=== PATIENT | male | born 1940 | race Two or more races ===

== ENCOUNTER 2021-03-08 10:25 | Inpatient (IN) | payer OTHER ==
[~2021-03-08] VITALS: Ht 167.6 cm; Wt 72.6 kg
[~2021-03-08 10:25] MED LIST: COZAAR50 MG PO; METFORMIN HCL500 MG PO; ZOCOR40 MG PO
[2021-03-08] MEDS ORDERED: LEVOTHYROXINE25 MCG PO (10:36)
--- NOTE | 2021-03-08 10:58 | NUR ---
PACIENTE MASCULINO, ALERTA Y ORIENTADO. REFIERE REGINA SINTIO DOLOR EN EL BRAZO CHEMO Y HOY LLEGA POR ADORMECIMIENTO EN EL MISMO. SE MIDE S/V. BP:180/85. SE REALIZA EKG, SE CONSULTA EL MISMO CON DRA. REINOSO. SE UBICA PTE EN NEHA, AREA DE OBSERVACION.
--- NOTE | 2021-03-08 11:08 | NUR ---
PTE ALERTA,ESTBLE Y ORIENTADO.SE EDUCA SOBRE EL TRATAMIENTO QUE S VIN REALIZARA EN EL HOSPITAL Y NEREYDA REFIERE ENTENDER.SE EL MICHI MUESTRAS DE JEANETTE MALCOLM ORDEN MEDICA.
--- NOTE | 2021-03-08 15:09 | NUR ---
SE RECIBE PTE EN NEHA CON BARANDAS ELEVADAS EN POSICION SEMI-MORENO. PTE CON BUEN PATRON RESPIRATORIO. ALERTA, ORIENTADO EN SHIKHA NADINE ESFERAS. AL MOMENTO NO REFIERE DOLOR. VENOPUNCION DE PTE PATENTE [place] DE [place]DEMA Y ERITEMA. RECIBIENDO TERAPIA IVFS 0.9NSS BAJANDO KVO. PENDIENTE RESULTADO DE PLACA.
[2021-03-09] MEDS ORDERED: METFORMIN HCL1000 M3 (16:38)
[2021-03-09] MEDS ORDERED: ROSUVASTATIN CA20 MG (16:38)
[2021-03-09] MEDS ORDERED: BEVESPI AEROS10.7 GM (16:38)
[2021-03-11] MEDS ORDERED: SIMVASTATIN40 MG PO (09:43)
[2021-03-11] MEDS ORDERED: Procardia Xl 30MG TA PO (09:43)
[2021-03-11] MEDS ORDERED: CLOPIDOGREL BIS75 MG PO (09:43)
[2021-03-11] MEDS ORDERED: OSEL75CA PO (09:43)
[2021-03-11] MEDS ORDERED: HYDRALAZINE HCL50 MG PO (09:43)
[2021-03-11] MEDS ORDERED: CEFDINIR125 MG/5 M PO (09:45)
== END 2021-03-11 10:18 | disposition home or self-care (01) | DRG 65 ==
LOC: ER 10:25 → SEC-K 18:58 → MEDJ 18:58 → SURH 03-09 00:41 → MEDJ 03-09 00:50
PROVIDERS: ADMIT Internal Medicine; ATTEND Internal Medicine
PROC: 3E0F7SF Introduction of Other Gas into Respiratory Tract, Via Natural or Artificial Opening (ICD-10-PCS; principal; 2021-03-08)
PROC: 4A033R1 Measurement of Arterial Saturation, Peripheral, Percutaneous Approach (ICD-10-PCS; 2021-03-08)
PROC: 8E0ZXY6 Isolation (ICD-10-PCS; 2021-03-08)
PROC: BW28ZZZ Computerized Tomography (CT Scan) of Head (ICD-10-PCS; 2021-03-08)
PROC: 4A12X4Z Monitoring of Cardiac Electrical Activity, External Approach (ICD-10-PCS; 2021-03-08)
PROC: B345ZZZ Ultrasonography of Bilateral Common Carotid Arteries (ICD-10-PCS; 2021-03-09)
PROC: B348ZZZ Ultrasonography of Bilateral Internal Carotid Arteries (ICD-10-PCS; 2021-03-09)
PROC: B24BZZZ Ultrasonography of Heart with Aorta (ICD-10-PCS; 2021-03-09)
PROC: B030ZZZ Magnetic Resonance Imaging (MRI) of Brain (ICD-10-PCS; 2021-03-10)
DX: I63.89 Other cerebral infarction (principal); N17.8 Other acute kidney failure; J10.1 Influenza due to other identified influenza virus with other respiratory manifestations; R65.10 Systemic inflammatory response syndrome (SIRS) of non-infectious origin without acute organ dysfunction; I10 Essential (primary) hypertension; E11.9 Type 2 diabetes mellitus without complications; E03.8 Other specified hypothyroidism; R09.02 Hypoxemia; Z20.822 Contact with and (suspected) exposure to COVID-19; D72.828 Other elevated white blood cell count
CPT/HCPCS: 70551

== ENCOUNTER 2021-04-25 18:39 | Emergency (ER) | payer OTHER ==
[~2021-04-25] VITALS: Ht 167.6 cm; Wt 72.6 kg
[~2021-04-25 18:39] MED LIST changes: +BEVESPI AEROS10.7 GM; +CEFDINIR125 MG/5 M PO; +CLOPIDOGREL BIS75 MG PO; +HYDRALAZINE HCL50 MG PO; +LEVOTHYROXINE25 MCG PO; +METFORMIN HCL1000 M3; +OSEL75CA PO; +Procardia Xl 30MG TA PO; +ROSUVASTATIN CA20 MG; +SIMVASTATIN40 MG PO
[2021-04-25] MEDS ORDERED: HYDRALAZINE HCL50 MG PO (20:28)
== END 2021-04-25 21:57 | disposition home or self-care (01) ==
LOC: ER 18:39
DX: I16.0 Hypertensive urgency (principal); I10 Essential (primary) hypertension